=== PATIENT | female | born 1955 | race Caucasian/White ===

== ENCOUNTER 2019-08-31 10:41 | Emergency (ER) | payer OTHER ==
[~2019-08-31] VITALS: Ht 167.6 cm; Wt 63.5 kg
[~2019-08-31 10:41] MED LIST: ACIDOPHILUS1 EACH PO; AMANTADINE100 M1 PO; AMPYRA10 MG PO; ARTIFICIAL TEA1 EACH OP; CLONAZEPAM 0.50.5 M1 PO; COLACE100 MG PO; GENTEAL TEARS 015 M1 OP; LEXAPRO20 MG PO; LIALDA1.2 GM PO; LIORESAL 10 MG10 MG PO; MEGARED OMEGA-1 EAC1 PO; MELATONIN1 MG PO; OXYBUTYNIN 5 MG5 M2 PO; THERA1 EAC1 PO; TUMS PO; TYLENOL325 MG PO; VITAMIN D3400 UNIT PO
[2019-08-31 11:12] LABS: URINE BILIRUBIN NEGATIVE (Negative); URINE BLOOD TRACE (Negative); URINE CLARITY CLOUDY; URINE COLOR YELLOW; URINE GLUCOSE-RANDOM* NEGATIVE (Negative); URINE KETONES NEGATIVE (Negative); URINE PROTEIN (DIPSTICK) 2+ (Negative); URINE SPECIFIC GRAVITY <= 1.005 (1.005-1.035); URINE UROBILINOGEN 0.2 E.U./dl (0.2-1.0)
[2019-08-31 11:13] LABS: URINE LEUKOCYTES-REFLEX 3+ (Negative); URINE NITRITE-REFLEX POSITIVE (Negative)
[2019-08-31 11:21] LABS: AMORPHOUS PHOSPHATES Many /LPF (None Seen); CASTS None Seen /LPF (None Seen); SQUAMOUS None Seen /LPF (0-3); URINE RBC None Seen /HPF (0-2); URINE WBC-REFLEX 0-5 Rare /HPF (0-5)
[2019-08-31 11:22] LABS: TRIPLE PHOSPHATE CRYSTALS 0-3 Few /LPF (None Seen); YEAST-REFLEX Present (None Seen)
[2019-08-31 12:36] LABS: ABSOLUTE NEUTROPHILS 4.4 thou/uL (1.4-8.2); EOSINOPHILS 2.1 % (0.0-3.0); HEMATOCRIT 45.8 % (37.0-47.0); LYMPHOCYTES 24.2 % (24.0-44.0); MCH 30.4 pg (26.0-34.0); MCHC 32.7 g/dL (28.0-37.0); MCV 93.1 fL (80.0-100.0); MONOCYTES 8.9 % (1.0-8.0); PLATELET COUNT 337 thou/uL (150-400); POLYS 63.8 % (36.0-66.0); RBC 4.92 mil/uL (4.20-5.00); RDW 13.8 % (10.5-14.5)
[2019-08-31 12:50] LABS: CALCIUM 9.7 mg/dL (8.5-10.1); CREATININE 0.7 mg/dL (0.6-1.0); MAGNESIUM 2.2 mg/dL (1.8-2.4); POTASSIUM 4.7 mmol/L (3.5-5.1)
[2019-08-31] MEDS ORDERED: KEFLEX500 M1 PO (13:08)
[2019-08-31 14:12] VITALS: BP 126/65
== END 2019-08-31 14:12 | disposition home or self-care (01) ==
LOC: ER 10:41
PROVIDERS: Emergency Medicine; Nurse Practitioner Family
DX: T83.038A Leakage of other urinary catheter, initial encounter (principal); N39.0 Urinary tract infection, site not specified; Z87.440 Personal history of urinary (tract) infections

== ENCOUNTER 2020-06-28 13:51 | Emergency (ER) | payer OTHER ==
[~2020-06-28] VITALS: Ht 165.1 cm; Wt 57.6 kg
[~2020-06-28 13:51] MED LIST changes: +KEFLEX500 M1 PO
[2020-06-28 16:26] VITALS: BP 132/82
== END 2020-06-28 16:26 | disposition home or self-care (01) ==
LOC: ER 13:51
DX: T83.098A Other mechanical complication of other urinary catheter, initial encounter (principal); Z79.899 Other long term (current) drug therapy